=== PATIENT | male | born 1965 | race African-American/Black ===

== ENCOUNTER 2024-10-17 05:29 | Emergency (ER) | payer MEDICAID, OTHER ==
[~2024-10-17] VITALS: Ht 182.9 cm; Wt 81.0 kg
[2024-10-17] MEDS ORDERED: PIPERACILLIN/TAZO 3.375G/50ML 50 ML IV ONE (05:45)
[2024-10-17] MEDS: SODIUM CHLORIDE 0.9% (SEPSIS BOLUS) IV ONE (06:20)
[2024-10-17] MEDS: VANCOMYCIN 1G PREMIX 200 ML IV ONE (06:23)
[2024-10-17] MEDS: PIPERACILLIN/TAZO 3.375G/100ML 100 ML IV NR (07:10)
[2024-10-17 08:32] LABS: CLARITY URINE CLOUDY (CLEAR); COLOR URINE DARK YELLOW (YELLOW); GLUCOSE URINE 3+ (NEGATIVE); KETONES URINE TRACE (NEGATIVE); LEUKOCYTE ESTERASE URINE TRACE (NEGATIVE); NITRITE URINE NEGATIVE (NEGATIVE); OCCULT BLOOD URINE NEGATIVE (NEGATIVE); PROTEIN URINE 1+ (NEGATIVE); SPECIFIC GRAVITY URINE 1.027 (1.005-1.030)
[2024-10-17] MEDS: ACETAMINOPHEN 1000MG/100ML 100 ML IV ONE (08:32)
[2024-10-17 09:10] LABS: BACTERIA URINE 1+; SQUAMOUS EPITHELIAL CELL URINE 1+ /lpf (RARE/1+)
[2024-10-17 09:11] LABS: WBC URINE 0-2 /hpf (0-2)
[2024-10-17 09:12] LABS: RBC URINE NONE SEEN /hpf (0-2)
[2024-10-17 09:54] LABS: HEMATOCRIT. 39.3 % (42.0-52.0); HEMOGLOBIN. 12.5 g/dL (14.0-18.0); MEAN CORPUSCULAR HEMOGLOBIN 28.1 pg (28.0-32.0); MEAN CORPUSCULAR HGB CONC 31.9 g/dL (31.0-37.0); MEAN CORPUSCULAR VOLUME 88.2 fL (80.0-94.0); MEAN PLATELET VOLUME 10.2 fl (7.4-10.4); PLATELET 249 x1000/uL (130-400); RED BLOOD CELL COUNT 4.45 mill/uL (4.7-6.1); RED CELL DISTRIBUTION WIDTH 16.7 % (11.6-14.6); WHITE BLOOD COUNT 11.7 x1000/uL (4.5-11.0)
[2024-10-17 09:57] LABS: CALCIUM 8.6 mg/dL (8.7-10.4)
[2024-10-17 09:58] LABS: DIFFERENTIAL COMMENT 1
[2024-10-17 10:00] LABS: INR 1.2; PROTHROMBIN TIME 13.6 sec (9.6-11.0)
[2024-10-17] MEDS: MORPHINE SULFATE 4 MG/ML INJ (FOR IV/IM USE) IV ONE ×2 (10:16→11:58)
[2024-10-17 10:42] LABS: LACTIC ACID 7.3 mmol/L (0.4-2.0)
[2024-10-17] MEDS: SODIUM CHLORIDE 0.9% 1,000 ML IV ONE (11:06)
[2024-10-17 11:24] LABS: ANISOCYTOSIS 1+; PLATELET ESTIMATE NORMAL
[2024-10-17 12:07] VITALS: RESP 40
[2024-10-17 20:25] VITALS: RESP 32
[2024-10-17] MEDS ORDERED: AMIODARONE 360MG/200ML 200 ML IV SCH (20:45)
[2024-10-17] MEDS: METHYLPREDNISOLONE SOD SUCC 125MG/2ML (ACT-O-VIAL) IV SCH (20:45)
[2024-10-17] MEDS: LORAZEPAM 2MG/ML INJ IV NR (21:00)
[2024-10-17] MEDS: AZITHROMYCIN 500MG/250ML 250 ML IV SCH (21:00)
[2024-10-17] MEDS: AMIODARONE 150MG/100ML D5W 100 ML IV NR (21:00)
[2024-10-17] MEDS: AMIODARONE HCL 900 MG in DEXT 5% WATER 500 ML IV SCH (22:47)
[2024-10-17] MEDS: SODIUM CHLORIDE 0.9% 500 ML IV ONE (23:15)
[2024-10-17] MEDS ORDERED: FENTANYL 2500MCG/250ML PMX 250 ML IV PRN (23:15)
[2024-10-17 23:22] VITALS: PULSE 134; RESP 18; O2SAT 94
[2024-10-17] MEDS: NOREPINEPHRINE 8MG/250ML PMX 250 ML IV PRN (23:45)
[2024-10-18] VITALS (8 sets, daily range): BP systolic 118; BP diastolic 95; PULSE 97–125; RESP 28; TEMP 36.11400; O2SAT 92–99
[2024-10-18 00:01] LABS: BG BASE EXCESS -12.5 mmol/L (-2.0-3.0); BG CARBOXYHEMOGLOBIN 0.5 % (0.5-1.5); BG DEOXYHEMOGLOBIN 0.3 % (0.0-5.0); BG FRACTION INSPIRED OXYGEN 100; BG HCO3 ACT 17.2 mmol/L (21.0-28.0); BG METHEMOGLOBIN 0.3 % (0.5-1.5); BG OXYGEN SATURATION 99.7 % (94.0-98.0); BG OXYHEMOGLOBIN 98.9 % (94.0-98.0); BG PCO2 56.1 mmHg (35.0-48.0); BG PH 7.105 (7.350-7.450); BG PO2 228.3 mmHg (83.0-108.0); BG SAMPLE SITE LEFT RADIAL; BG TOTAL HEMOGLOBIN 12.8 g/dL (13.5-17.5); BG VENT MODE VENT - AC
[2024-10-18] MEDS: BUDESONIDE 0.5MG/2ML NEB HHN SCH (00:15)
[2024-10-18] MEDS: IPRATROPIUM/ALBUTEROL 0.5-3(2.5)MG/3ML NEB HHN SCH (00:15)
[2024-10-18] MEDS: PROPOFOL 10MG/ML 100ML 100 ML IV SCH (00:39)
[2024-10-18] MEDS: FENTANYL CITRATE 1,000 MCG in SODIUM CHLORIDE 0.9% 80 ML IV PRN (01:06)
[2024-10-18] MEDS ORDERED: DOPAMINE 400MG/250ML PREMIX 250 ML IV ONE (01:24)
[2024-10-18] MEDS ORDERED: VASOPRESSIN 20 UNIT in SODIUM CHLORIDE 0.9% 99 ML IV PRN (01:30)
[2024-10-18] MEDS ORDERED: EPINEPHRINE 5 MG in DEXT 5% WATER 245 ML IV PRN (01:45)
[2024-10-18] MEDS: DOPAMINE 400MG/250ML PREMIX 250 ML IV PRN (01:50)
[2024-10-18 02:06] LABS: BASOPHILS % 0.1 % (0.0-2.0); EOSINOPHILS % 0.3 % (0.0-5.0); HEMATOCRIT. 33.5 % (42.0-52.0); HEMOGLOBIN. 10.6 g/dL (14.0-18.0); LYMPHOCYTES % 6.9 % (20.0-50.0); MEAN CORPUSCULAR HEMOGLOBIN 28.4 pg (28.0-32.0); MEAN CORPUSCULAR HGB CONC 31.6 g/dL (31.0-37.0); MEAN CORPUSCULAR VOLUME 89.8 fL (80.0-94.0); MEAN PLATELET VOLUME 9.6 fl (7.4-10.4); MONOCYTES % 7.5 % (2.0-8.0); NEUTROPHILS % 85.2 % (40.0-76.0); PLATELET 288 x1000/uL (130-400); RED BLOOD CELL COUNT 3.74 mill/uL (4.7-6.1); RED CELL DISTRIBUTION WIDTH 17.6 % (11.6-14.6); WHITE BLOOD COUNT 14.2 x1000/uL (4.5-11.0)
[2024-10-18] MEDS: VASOPRESSIN 20 UNIT in SODIUM CHLORIDE 0.9% 99 ML IV PRN (02:07)
[2024-10-18 02:18] LABS: DIFFERENTIAL COMMENT 1
[2024-10-18 02:38] LABS: PHOSPHORUS 14.8 mg/dL (2.5-4.9)
[2024-10-18 03:39] LABS: CHLORIDE 102 mEq/L (98-107); SODIUM 138 mEq/L (136-145)
[2024-10-18 03:40] LABS: CARBON DIOXIDE 14 mEq/L (21-32)
[2024-10-18 03:45] LABS: GLUCOSE 233 mg/dL (70-105)
[2024-10-18 03:46] LABS: UREA NITROGEN BLOOD 54 mg/dL (9-23)
[2024-10-18 03:47] LABS: ALANINE AMINOTRANSFERASE 49 IU/L (10-49); ALBUMIN 2.8 g/dL (3.2-4.8); ASPARTATE AMINOTRANSFERASE 105 IU/L (<34)
[2024-10-18 03:48] LABS: BILIRUBIN TOTAL 1.3 mg/dL (0.1-1.0); PROTEIN TOTAL 4.9 g/dL (6.0-8.3)
[2024-10-18 03:52] LABS: CREATININE 4.1 mg/dL (0.6-1.3)
[2024-10-18] MEDS ORDERED: MIDAZOLAM HCL 100 MG in SODIUM CHLORIDE 0.9% 100 ML IV PRN (04:00)
[2024-10-18] MEDS ORDERED: MIDAZOLAM 100MG/100ML PMX 100 ML IV PRN (04:00)
[2024-10-18] MEDS: MIDAZOLAM HCL 2 MG/2 ML VIAL IV NR (04:02)
[2024-10-18] MEDS: ACETAMINOPHEN 325MG TABLET PO PRN (04:18)
[2024-10-18] MEDS: SODIUM BICARBONATE 8.4% 50MEQ/50ML SYR IV NR ×3 (05:15→10:55)
[2024-10-18 05:32] LABS: BG BASE EXCESS -18.5 mmol/L (-2.0-3.0); BG CARBOXYHEMOGLOBIN 0.6 % (0.5-1.5); BG DEOXYHEMOGLOBIN 7.3 % (0.0-5.0); BG FRACTION INSPIRED OXYGEN 100; BG HCO3 ACT 16.3 mmol/L (21.0-28.0); BG METHEMOGLOBIN 0.5 % (0.5-1.5); BG OXYGEN SATURATION 92.6 % (94.0-98.0); BG OXYHEMOGLOBIN 91.6 % (94.0-98.0); BG PCO2 97.3 mmHg (35.0-48.0); BG PH 6.842 (7.350-7.450); BG PO2 99.1 mmHg (83.0-108.0); BG TOTAL HEMOGLOBIN 11.8 g/dL (13.5-17.5); BG VENT MODE VENT - AC
[2024-10-18 05:34] LABS: BG BASE EXCESS -14.2 mmol/L (-2.0-3.0); BG CARBOXYHEMOGLOBIN 0.4 % (0.5-1.5); BG DEOXYHEMOGLOBIN 0.3 % (0.0-5.0); BG FRACTION INSPIRED OXYGEN 100; BG HCO3 ACT 15.9 mmol/L (21.0-28.0); BG METHEMOGLOBIN 0.3 % (0.5-1.5); BG OXYGEN SATURATION 99.7 % (94.0-98.0); BG PCO2 55.5 mmHg (35.0-48.0); BG PH 7.076 (7.350-7.450); BG TOTAL HEMOGLOBIN 12.7 g/dL (13.5-17.5); BG VENT MODE VENT - P/C
[2024-10-18] MEDS: EPINEPHRINE 5 MG in DEXT 5% WATER 245 ML IV PRN (05:42)
[2024-10-18] MEDS ORDERED: METHYLPREDNISOLONE SOD SUCC 40MG/ML (ACT-O-VIAL) IV SCH (06:00)
[2024-10-18] MEDS ORDERED: SODIUM CHLORIDE 10% FOR INH 15ML NEB INH SCH (08:00)
[2024-10-18] MEDS: PANTOPRAZOLE SODIUM 40 MG/VIAL IV SCH ×2 (09:10→10:30)
[2024-10-18] MEDS: VANCOMYCIN 1G PREMIX 200 ML IV SCH (09:10)
[2024-10-18] MEDS ORDERED: DEXTROSE 50% WATER 50ML SYRINGE IV PRN (10:30)
[2024-10-18 10:58] LABS: LACTIC ACID 15.2 mmol/L (0.4-2.0)
[2024-10-18 11:34] LABS: BG CARBOXYHEMOGLOBIN 1.3 % (0.5-1.5); BG DEOXYHEMOGLOBIN 0.4 % (0.0-5.0); BG FRACTION INSPIRED OXYGEN 50; BG HCO3 ACT 5.6 mmol/L (21.0-28.0); BG OXYGEN SATURATION 99.6 % (94.0-98.0); BG OXYHEMOGLOBIN 98.3 % (94.0-98.0); BG PCO2 35.7 mmHg (35.0-48.0); BG PH 6.816 (7.350-7.450); BG PO2 185.1 mmHg (83.0-108.0); BG SAMPLE SITE RIGHT BRACHIAL; BG TOTAL HEMOGLOBIN 11.7 g/dL (13.5-17.5); BG VENT MODE VENT - APRVC
[2024-10-18] MEDS ORDERED: DOPAMINE 400MG/250ML PREMIX 250 ML IV PRN (11:45)
[2024-10-18] MEDS ORDERED: BLOOD SUGAR DIAGNOSTIC STRIP TEST SCH (12:00)
[2024-10-18] MEDS ORDERED: PIPERACILLIN/TAZO 3.375G/50ML 50 ML IV SCH (12:00)
[2024-10-18] MEDS ORDERED: PIPERACILLIN/TAZO 3.375G/100ML 100 ML IV SCH (14:00)
[2024-10-18] MEDS ORDERED: HEPARIN 5000 UNITS/ML VIAL SUBCUT SCH (14:00)
== END 2024-10-18 13:49 ==
LOC: ER 05:29 → EDBEDREQSVC 10-18 01:12 → ER 10-18 13:49
DX: A41.9 Sepsis, unspecified organism (principal); R65.21 Severe sepsis with septic shock; J18.9 Pneumonia, unspecified organism; I50.9 Heart failure, unspecified; Z20.822 Contact with and (suspected) exposure to COVID-19
CPT/HCPCS: 80053; 80048; 81003; 82330; 82962; 83880; 83605; 83690; 83735; 84100; 85025; 85610; 87040; 87086; 87804 ×2; 36415; 84145; 71045 ×2; 74176; 82805; 82375; 31500; 94660; 94664; 93005; 94070; 98960; 51702; 96367 ×2; 96365; 96375 ×2; 96376 ×2; 99291; 87426; 36600; 96366; J3010; J0282 ×2; J3490 ×5; J2060; J2919; J2543; J2704; J3370 ×2; J2270; J7060 ×2; J7050 ×2; J7030; Z7610 ×8; J2250; J2470; J7626; J7131; J1265; 94002; J0456; J0131